=== PATIENT | male | born 1980 | race Caucasian/White ===

== ENCOUNTER 2023-07-29 17:00 | Outpatient (RCR) | payer OTHER, SELFPAY ==
--- NOTE | 2023-07-01 16:34 | HP.PTEVAL ---
Patient's Visit Information Visit Information Visit Information: ILEANA KERR is a 42 year old M referred to Physical Therapy by Dr. Lin Tapia DO with a diagnosis of Injury of R knee. Date of Evaluation: 07/01/23 Physical Therapist: Osbaldo Fontenot DPT Visit Plan Frequency: 1x in 3 weeks Plan: Pt to perform HEP at home for 3 weeks, will check back in to measure progress and possibly upgrade exercises if initial ones become too easy. (HEP: bridge marches, HS curl bridges, lateral and FWD Monster walks, S/L hip ABD with purple TB, banded SLR PTB, banded squats, banded 4 way ankle, post tib HR) Subjective Subjective: Pt presents to PT with R knee pain. He has had a chronic hx of R knee pain with dislocation, tripped over threshold getting into shop a few weeks ago and was very painful, had an MRI and X-ray showed meniscus tear and partial ACL tear. Pt feels pain and instability has improved with time. Squatting with heavy resistance when working out is when knee feels most unstable. Pt having no issues with walking, standing, or working. Physician recommended PT for a few visits with banded ex to improve strength around knee for approx. 6 weeks. Mensicus tear on medial side, small tear and does not catch. Pt has not been pushing it with working out. Pt wearing knee brace during the day to help with stability. 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 Pain Right Knee: Pain Intensity (Out of 10): 0 Pain Intensity Range: 0 and 3 Objective Objective: ROM: knee ext 0 deg, flex >140 with some tightness in joint at end range MMT: R - knee ext 4+/5, knee flex 4/5, hip ABD 3+/5, hip ext 3+/5, hip flex 3+/5 L - knee ext 4+/5, knee flex 4+/5, hip ABD 3+/5, hip ext 4-/5, hip flex 3+/5 PALPATION: some tightness in gretchen distal ITB, tightness in R quad but no TTP SQUAT: good form, able to go to depth greater than 90 deg, very slight valgus and shift to L GAIT: normalized pattern, no limp STS: no UE use, no pain, good standing balance SLS: RLE 10s with no pain VALGUS: (-) VARUS: (-) LACHMANS: (-) Balance/Special Test Scores Lower Extremity Functional Score: 51 Goals Goal 1:: Pt will adhere to HEP at least 4/7 days per week Goal Time Frame: 2-4 Weeks Goal 2:: Pt will demonstrate symmetrical LE/hip strength Goal Time Frame: 2-4 Weeks Goal 3:: Pt will demonstrate full depth squat with equal WB and good mechanics Goal Time Frame: 2-4 Weeks Rehabilitation Potential Physical Therapy Diagnosis: Pt presents to PT with R knee and hip weakness and increased joint play of R knee. Pt would benefit from skilled PT services to increase quad and hip strength and improve stability of R knee. Rehabilitation Potential: Excellent Anticipated Interventions Patient/Client Instruction: Educate patient on: Condition For the Purpose of:: To improve muscle performance and motor function, To improve ability to perform ADL's, To increase tolerance to activity/condition/position, To improve performance and independence with ADL's, To improve ability of physical actions for home/community/work/leisure, To improve gait and locomotor functions, To assume or resume ADL's, To reduce risk of recurrence, To improve self management, To prevent re-injury, To improve ability to perform tasks related to life management and To improve tolerance to ADL's Therapeutic Exercise to Include: Strength training For the Purpose of:: To improve muscle performance and motor function, To improve ability to perform ADL's, To increase tolerance to activity/condition/position, To improve performance and independence with ADL's, To improve ability of physical actions for home/community/work/leisure, To improve gait and locomotor functions, To assume or resume ADL's, To reduce risk of recurrence, To foster healthy habits and To improve self management Text: Thank you for the opportunity to evaluate your patient. For Medicare and Medicare HMO plans, please review the plan of care and approve it. It will need to be FAXED BACK to us at [phone] for Medicare purposes. For Medicare only, by signing this I certify the plan of care. Please let me know if there are questions or concerns regarding this plan of care. Physician Signature: Date:
== END 2023-07-29 19:00 | disposition home or self-care (01) ==
LOC: PT 17:00
PROVIDERS: Referring Provider Orthopaedic Surgery; Visit Provider Orthopaedic Surgery
DX: S89.91XD Unspecified injury of right lower leg, subsequent encounter (principal)
CPT/HCPCS: 97161